=== PATIENT | female | born 2000 | race Caucasian/White ===

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

== ENCOUNTER 2022-03-03 13:44 | Emergency (ER) | payer BC ==
[~2022-03-03] VITALS: Ht 162.6 cm; Wt 59.0 kg
[2022-03-03 14:06] VITALS: BP 112/82
--- NOTE | 2022-03-03 14:11 | NUR ---
/ BIBA FROM CAR AFTER PT PULLING OVER D/T NAUSEA AND VOMITING ONSET TODAY. PT PRESENTS WITH FEVER OF 100.5 ORAL. PT DENIES DIARRHEA. DENIES BLOOD IN VOMIT. AAO4, AMBULATORY, NOT ACTIVELY VOMITING. VITALS STABLE. PMH: DENIES LMP: 02/02/22
--- NOTE | 2022-03-03 16:05 | NUR ---
DR GARCIA ATTEMPTED TO BRING PT BACK, NOT FOUND IN LOBBY/OUTSIDE
--- NOTE | 2022-03-03 16:10 | NUR ---
2ND ATTEMPT, NOT FOUND IN LOBBY/OUTSIDE
--- NOTE | 2022-03-03 16:16 | NUR ---
FINAL ATTEMPT, PT NOT FOUND. PATIENT LEFT WITHOUT BEING SEEN BY DR. GARCIA. NO FURTHER CARE PROVIDED FOR PATIENT.
== END 2022-03-03 16:16 | disposition left against medical advice (07) ==
LOC: MED 13:44
DX: R11.2 Nausea with vomiting, unspecified (principal); Z53.21 Procedure and treatment not carried out due to patient leaving prior to being seen by health care provider